=== PATIENT | male | born 1985 | race African-American/Black ===

== ENCOUNTER 2023-01-25 18:04 | Emergency (ER) | payer SELFPAY ==
[2023-01-25 18:19] VITALS: BP 141/98; PULSE 92; RESP 20; TEMP 98; BMI 20.9
== END 2023-01-25 18:42 | disposition left against medical advice (07) ==
LOC: JERFT 18:04
DX: R22.0 Localized swelling, mass and lump, head (principal)
CPT/HCPCS: 99281-25

== ENCOUNTER 2024-09-12 04:15 | Day surgery (SDC) | payer OTHER ==
[2024-09-10 16:50] VITALS: BMI 18.8
[2024-09-12] MEDS ORDERED: MIDAZOLAM HCL 2 MG/2 ML SINGLE DOSE VIAL ONE (12:19)
[2024-09-12] MEDS ORDERED: PROPOFOL 20 ML ONE ×2 (12:20→13:41)
[2024-09-12] MEDS ORDERED: SUCCINYLCHOLINE CHLORIDE 200 MG/10 ML SYRINGE ONE (12:20)
[2024-09-12] MEDS ORDERED: LIDOCAINE HCL 1%, 10 MG/ML (20ML VIAL) ONE (12:40)
[2024-09-12] MEDS: ceFAZolin SODIUM 1 GM VIAL IVPB ONE (13:10)
[2024-09-12] MEDS ORDERED: ceFAZolin SODIUM 1 GM VIAL ONE (13:17)
[2024-09-12] MEDS: LIDOCAINE HCL 1%, 10 MG/ML (50 mL VIAL) INF ONE (13:31)
[2024-09-12] MEDS ORDERED: ONDANSETRON 4 MG/2 ML VIAL IVPUSH PRN (14:08)
[2024-09-12] MEDS ORDERED: oxyCODONE HCL 5 MG TABLET PO PRN (14:08)
[2024-09-12 15:36] VITALS: BP 145/94; PULSE 54; RESP 18; TEMP 97.7
== END 2024-09-12 17:21 | disposition home or self-care (01) ==
LOC: JASU-SURG 04:15
PROVIDERS: ATTEND Surgery
PROC: 0JB50ZZ Excision of Left Neck Subcutaneous Tissue and Fascia, Open Approach (ICD-10-PCS; principal; 2024-09-12 12:00)
DX: L72.3 Sebaceous cyst (principal)
CPT/HCPCS: 86850; 86900; 86901; 88305-TC; 94760